=== PATIENT | male | born 1980 | race Caucasian/White ===

== ENCOUNTER 2017-06-12 23:16 | Emergency (ER) | payer OTHER ==
[~2017-06-12] VITALS: Ht 167.6 cm; Wt 111.1 kg
[2017-06-12 23:19] VITALS: TEMP 36.9; Ht 167.6 cm; Wt 111.1 kg
[2017-06-12] MEDS ORDERED: ALBUT/IPRATROP 3MG/0.5MG NEB 3 ML VIAL INH STA (23:31)
[2017-06-12] MEDS ORDERED: SODIUM CHLORIDE 0.9% 1000ML 1,000 ML IV STA (23:31)
[2017-06-12] MEDS ORDERED: GI COCKTAIL PO STA (23:31)
[2017-06-12] MEDS ORDERED: KETOROLAC TROMETHAMINE 30 MG/ML VIAL IV STA (23:31)
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
[2017-06-12] MEDS ORDERED: DEXAMETHASONE SOD INJ 10 MG/ML VIAL IV ONE (23:45)
[2017-06-13 00:02] LABS: VEN BLOOD GAS BASE EXCESS 3.3 mEq/L; VENOUS BLOOD GAS PCO2 47 mmHg (38.0-50.0); VENOUS BLOOD GAS PO2 30 mmHg
[2017-06-13 00:07] LABS: VEN BLD GAS O2 SATURATION < 60.0 %
[2017-06-13] MEDS ORDERED: ALUMINUM/MAGNESIUM SUSP 30 ML UDC ONE (00:12)
[2017-06-13] MEDS ORDERED: LIDOCAINE HCL 2% VISC SOLN 20 ML UDC ONE (00:12)
[2017-06-13 00:18] LABS: BUN/CREATININE RATIO 11.3 (10-20); CALCIUM 9.8 mg/dl (8.5-10.1); CREATININE 1.1 mg/dl (0.60-1.40); POTASSIUM 4.4 mmol/L (3.5-5.1)
[2017-06-13 00:43] VITALS: BP 140/91; PULSE 88; O2SAT 98
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
== END 2017-06-13 00:43 | disposition home or self-care (01) ==
LOC: C.EDB 23:18 → C.EDA 06-13 00:43
DX: J68.9 Unspecified respiratory condition due to chemicals, gases, fumes and vapors (principal)